=== PATIENT | female | born 1955 | race Caucasian/White ===

== ENCOUNTER 2021-01-30 03:26 | Inpatient (IN) | payer MEDICARE, OTHER ==
[~2021-01-30] VITALS: Ht 170.2 cm; Wt 66.7 kg
[2021-01-30 04:00] LABS: HEMOGLOBIN 15.5 gm/dl (12.3-15.3); RED BLOOD COUNT 4.53 M/UL (4.00-5.10); WHITE BLOOD COUNT 9.4 K/UL (4.5-11.0)
[2021-01-30 04:27] LABS: BUN/CREATININE RATIO 15 (0-10)
[2021-01-30] MEDS ORDERED: CELEBREX200 MG PO (10:41)
[2021-01-30] MEDS ORDERED: WELLBUTRIN XL300 M1 PO (10:42)
[2021-01-30] MEDS ORDERED: SYNTHROID100 MCG PO (10:42)
[2021-01-30] MEDS ORDERED: ANORO ELLIPTA1 EACH INH (10:42)
[2021-01-31 06:41] LABS: HEMOGLOBIN 13.7 gm/dl (12.3-15.3); WHITE BLOOD COUNT 8.3 K/UL (4.5-11.0)
[2021-01-31 06:42] LABS: RED BLOOD COUNT 4.05 M/UL (4.00-5.10)
[2021-01-31 07:07] LABS: BUN/CREATININE RATIO 26 (0-10)
[2021-02-01 07:12] LABS: BUN/CREATININE RATIO 25 (0-10)
[2021-02-02 10:45] LABS: HEMOGLOBIN 14.1 gm/dl (12.3-15.3); RED BLOOD COUNT 4.2 M/UL (4.00-5.10); WHITE BLOOD COUNT 9.7 K/UL (4.5-11.0)
[2021-02-02 11:09] LABS: BUN/CREATININE RATIO 24 (0-10)
[2021-02-02] MEDS ORDERED: ACETAMINOPHEN325 MG PO (14:36)
[2021-02-02] MEDS ORDERED: DOXYCYCLINE HY100 M2 PO (14:36)
[2021-02-02] MEDS ORDERED: PROVENTIL HFA6.7 GM INH (14:36)
[2021-02-02] MEDS ORDERED: ERYTHROMYCIN O3.5 GM EYELF (14:36)
[2021-02-02] MEDS ORDERED: PREDNISONE 5 MG5 MG PO (14:36)
[2021-02-02] MEDS ORDERED: NICOTINE PATCH1 EAC5 TD (14:41)
== END 2021-02-02 17:38 | disposition home or self-care (01) | DRG 189 ==
LOC: ER1 03:26 → MED SURG 4 07:42 → CDU 07:42 → MED SURG 4 01-31 00:30
PROVIDERS: Family Medicine; Internal Medicine; ADMIT Internal Medicine
DX: J96.01 Acute respiratory failure with hypoxia (principal); J44.1 Chronic obstructive pulmonary disease with (acute) exacerbation; F17.210 Nicotine dependence, cigarettes, uncomplicated; Z20.822 Contact with and (suspected) exposure to COVID-19; E03.9 Hypothyroidism, unspecified; J20.5 Acute bronchitis due to respiratory syncytial virus; D69.6 Thrombocytopenia, unspecified; H54.62 Unqualified visual loss, left eye, normal vision right eye; F32.9 Major depressive disorder, single episode, unspecified; I49.5 Sick sinus syndrome; Z95.0 Presence of cardiac pacemaker; Z90.49 Acquired absence of other specified parts of digestive tract; Z82.3 Family history of stroke
CPT/HCPCS: 36415; 36600; 71045; 80048; 80053; 82550; 82553; 82803; 83605; 83615; 83735; 84484; 85025; 85027; 85379; 85610; 86140; 87040; 87070; 87205; 87420; 93005; 94640; 94664; 94760; 96374; 99285; J1650; J2920; J2930; Q9967; U0002

== ENCOUNTER 2021-04-11 02:22 | Emergency (ER) | payer MEDICARE, OTHER ==
[~2021-04-11 02:22] MED LIST: ACETAMINOPHEN325 MG PO; ANORO ELLIPTA1 EACH INH; CELEBREX200 MG PO; DOXYCYCLINE HY100 M2 PO; ERYTHROMYCIN O3.5 GM EYELF; NICOTINE PATCH1 EAC5 TD; PREDNISONE 5 MG5 MG PO; PROVENTIL HFA6.7 GM INH; SYNTHROID100 MCG PO; WELLBUTRIN XL300 M1 PO
[2021-04-11 04:11] LABS: BORDETELLA PARAPERTUSSIS Not Detected (Not Detectd); BORDETELLA PERTUSSIS Not Detected (Not Detectd); CHLAMYDIA PNEUMONIAE Not Detected (Not Detectd); CORONAVIRUS HKU1 Not Detected (Not Detectd); CORONAVIRUS NL63 Not Detected (Not Detectd); CORONAVIRUS OC43 Not Detected (Not Detectd); CORONOAVIRUS 229E Not Detected (Not Detectd); HUMAN METAPNEUMOVIRUS Not Detected (Not Detectd); INFLUENZA A Not Detected (Not Detectd); INFLUENZA B Not Detected (Not Detectd); MYCOPLASMA PNEUMONIAE Not Detected (Not Detectd); PARAINFLUENZA VIRUS 1 Not Detected (Not Detectd); PARAINFLUENZA VIRUS 2 Not Detected (Not Detectd); PARAINFLUENZA VIRUS 3 Not Detected (Not Detectd); PARAINFLUENZA VIRUS 4 Not Detected (Not Detectd); RESPIRATORY SYNCYTIAL VIRUS Not Detected (Not Detectd)
[2021-04-11 04:17] LABS: RED BLOOD COUNT 4.15 M/UL (4.00-5.10); WHITE BLOOD COUNT 13.7 K/UL (4.5-11.0)
[2021-04-11 04:31] LABS: BUN/CREATININE RATIO 12 (0-10)
[2021-04-11 05:03] LABS: HUMAN RHINOVIRUS/ENTEROVIRUS DETECTED (Not Detectd); SARS-CoV-2 NOT DETECTED (Not Detectd)
[2021-04-11] MEDS ORDERED: MEDROL DOSEPAK 24 MG PO (05:37)
[2021-04-11] MEDS ORDERED: OMNICEF 300 MG300 MG PO (05:37)
[2021-04-11] MEDS ORDERED: DELSYM30 MG/5 ML PO (05:37)
[2021-04-11] MEDS ORDERED: AZITHROMYCIN250 MG PO (05:37)
== END 2021-04-11 06:15 | disposition home or self-care (01) ==
LOC: ER1 02:22
PROVIDERS: Physician Assistant Medical
DX: J44.0 Chronic obstructive pulmonary disease with (acute) lower respiratory infection (principal); J20.6 Acute bronchitis due to rhinovirus; J44.1 Chronic obstructive pulmonary disease with (acute) exacerbation; Z20.822 Contact with and (suspected) exposure to COVID-19
CPT/HCPCS: 71045; 80053; 83605; 83880; 84484; 85025; 85610; 87040; 87081; 87633; 87880; 93005; 94664; 96374; 96375; 99284; J0696; J2930